=== PATIENT | male | born 1985 | race Caucasian/White ===

== ENCOUNTER 2023-03-29 08:04 | Emergency (ER) | payer OTHER, SELFPAY ==
[2023-03-29 08:12] VITALS: BP 134/77; PULSE 85; RESP 24; TEMP 36.6; O2SAT 99
--- NOTE | 2023-03-29 08:13 | ED.URI ---
HPI - URI/Sore Throat General Chief Complaint: Upper Respiratory Infection Stated Complaint: Sore Throat Time Seen by Provider: 03/29/23 08:13 Source: patient Mode of arrival: ambulatory Limitations: no limitations History of Present Illness HPI Narrative: 37-year-old male presents with complaint of sore throat for the past 6 days. Also reports some mild congestion and cough. Taking [id number] DayQuil NyQuil cold and flu with no relief of symptoms. States main symptom is basically the sore throat, worse with swallowing. Afebrile. Denies nausea vomiting diarrhea. Reports fatigue. All systems reviewed and negative except as noted above. Related Data Home Medications Medication Instructions Recorded Confirmed hydrochlorothiazide 25 mg tablet 25 mg PO DAILY 03/29/23 03/29/23 losartan 100 mg tablet 100 mg PO DAILY 03/29/23 03/29/23 metoprolol succinate 50 mg 50 mg PO DAILY 03/29/23 03/29/23 tablet,extended release 24 hr Allergies Allergy/AdvReac Type Severity Reaction Status Date / Time No Known Allergies Allergy Verified 03/29/23 08:26 Review of Systems Review of Systems: CONSTITUTIONAL: Denies fever, chills, or sweats. Reports fatigue. EYES: Denies visual changes, redness, or discharge. ENT: Reports rhinorrhea, congestion, sore throat. Denies otalgia. CARDIOVASCULAR: Denies chest pain, palpitations, or edema. RESPIRATORY: Reports cough. Denies dyspnea. GASTROINTESTINAL: Denies abdominal pain, nausea, vomiting, or diarrhea. GENITOURINARY: Denies dysuria or hematuria. SKIN: Denies rash or itching. MUSCULOSKELETAL: Denies back pain, joint pain, or myalgia. NEUROLOGIC: Denies headache, numbness, or weakness. PSYCHIATRIC: Denies anxiety or depression. All other systems reviewed are negative, except as documented in HPI. PMFSH Comments At time of signature, agree with nursing past medical, surgical, social and family history. There is no relevant family history pertinent to the presenting complaint. Exam Narrative: GENERAL: This is a well-nourished, well-developed patient, in no apparent distress. HEAD: normocephalic, atraumatic. EYES: PERRL. Sclera clear/white. Vision is grossly intact. EARS: External ears normal, auditory canals clear and without drainage, TMs normal without perforation. Hearing grossly intact. NOSE: External nose normal with no obvious nasal discharge, nares without redness, no rhinorrhea. THROAT: Mucous membranes moist, swelling to posterior pharynx with erythema. Tonsils erythematous, 2+ bilaterally. NECK: Neck supple, non-tender without lymphadenopathy, masses or thyromegaly. CARDIOVASCULAR: Regular rate and rhythm without murmurs, gallops, or rubs. RESPIRATORY: Clear to auscultation. Breath sounds equal bilaterally. No wheezes, rales, or rhonchi. SKIN: warm, Dry, intact with no suspicious lesions or rash, good texture and turgor. NEURO: awake, alert, and oriented to person, place and time. There were no obvious focal neurologic abnormalities. EXTREMITIES: No joint tenderness, effusion, or edema noted. Course Course Level of Care: Express Care Visit Vital Signs Vital signs: Vital Signs Temperature 36.6 C 03/29/23 08:12 Pulse Rate 85 03/29/23 08:12 Respiratory Rate 24 H 03/29/23 08:12 Blood Pressure 134/77 03/29/23 08:12 Pulse Oximetry 99 03/29/23 08:12 Oxygen Delivery Room Air 03/29/23 08:12 Temperature 36.6 C 03/29/23 08:12 Pulse Rate 85 03/29/23 08:12 Respiratory Rate 24 H 03/29/23 08:12 Blood Pressure 134/77 03/29/23 08:12 Pulse Oximetry 99 03/29/23 08:12 Oxygen Delivery Room Air 03/29/23 08:12 Reviewed MDM - URI/Sore Throat MDM Narrative Medical decision making narrative: Patient is aware of diagnosis, understands and agrees to treatment plan. Anticipatory guidance given. Patient agrees to follow-up as directed and is aware of reasons to seek care at the emergency department. Portions of this record february
== END 2023-03-29 08:40 | disposition home or self-care (01) ==
PROVIDERS: Emergency Provider Nurse Practitioner Family; PCP Internal Medicine
DX: J01.90 Acute sinusitis, unspecified (principal); I10 Essential (primary) hypertension
CPT/HCPCS: 87081; 87880; 99213; G0463

== ENCOUNTER 2025-01-07 16:42 | Emergency (ER) | payer OTHER, SELFPAY ==
--- OUTSIDE RECORDS SUMMARY | 2025-01-07 16:44 | XMS_ITS | Referral Summary ---
Author Organization [facility] [address] Address [address] [place] [address] Care Team Providers Care Traffic Circuit Engineer Name Role Phone Jamie Tello MD Primary Care Provider [phone] Encounters Date Type Department Care Team Description 10/26/2024 8:00 AM VETERINARY ATTENDANT Office Visit [facility] [address] [facility] [address] [facility] [place] [address] Jamie Tello MD Essential hypertension (Primary Dx); Dermatitis; Sleep apnea, unspecified type from Last 3 Months Allergies No known active allergies Medications losartan (COZAAR) 100 mg tablet Take 1 tablet by mouth once daily 90 tablet 3 10/01/2024 Active hydroCHLOROthiaz juany (HYDRODIURIL) 25 mg tablet Take 1 tablet by mouth once daily 90 tablet 3 10/01/2024 Active metoprolol XL (TOPROL-XL) 50 mg extended release tablet Take 1 tablet by mouth once daily 90 tablet 3 10/01/2024 Active Active Problems Problem Noted Date Diagnosed Date Coccyx pain 08/10/2024 Assessment & Plan (08/10/2024 1:44 PM CDT): Naproxen BID x 3d, then as needed Continue OTC APAP Heat PRN Will obtain imaging today Essential hypertension 10/03/2021 Immunizations Immunization Administration Dates Next Due Influenza, Quadrivalent, Gisselle l Culture-based MDCK, Preservative Free, Antibiotic Free, Intramuscular 07/05/2022,07/18/2020 Influenza, Quadrivalent, Rec ombinant, Egg Free, Preservative Free, Intramuscular 07/04/2021 Influenza, Quadrivalent, Spl it, Preservative Free, Intramuscular 07/17/2023 Influenza, Trivalent, Preservative Free, Intramu scular 08/06/2024 Daniel (J&J) SARS-CoV-2 Vaccination 12/24/2020 Tdap 02/15/2023 Social History Tobacco Use Types Packs/Day Years Used Date Smoking Tobacco: Former Cigarettes Q uit: 07/2003 Smokeless Tobacco: Never Tobacco Cessation:Counseling Given: Not Answered Sex and Gender Information Value Date Recorded Sex Assigned at Not on file Legal Sex Male 2:39 PM CDT Gender Identity Not on file Sexual Orientation Not on file Last Filed Vital Signs Vital Sign Reading Time Taken Comments Blood Pressure 141/93 10/26/2024 7:57 AM VETERINARY ATTENDANT Pulse 79 10/26/2024 7:57 AM VETERINARY ATTENDANT Temperature - - Respiratory Rate - - Oxygen Saturation 98% 08/19/2024 2:19 PM CDT Inhaled Oxygen Concentration - - Weight 131.5 kg (290 lb) 10/26/2024 7:57 AM VETERINARY ATTENDANT Height 177.8 cm (5' 10 ) 10/26/2024 7:57 AM VETERINARY ATTENDANT Body Mass Index 41.61 10/26/2024 7:57 AM VETERINARY ATTENDANT Plan of Treatment Not on file Insurance DANICA CIGNA CIGNA CIGNA CIGNA Care Teams Traffic Circuit Engineer Relationship Specialty Start Date End Date Jamie Tello MD [address] [address] PCP - General Internal Medicine 06/16/20
--- OUTSIDE RECORDS SUMMARY | 2025-01-07 16:44 | XMS_ITS | Clinical Summary ---
Author Organization [facility] [address] Address [address] [place] [address] Care Team Providers Care Mainspring Winder Name Role Phone Jamie Tello MD Primary Care Provider [phone] Allergies No known active allergies Medications losartan [...] Will obtain imaging today Essential hypertension 10/03/2021 Encounters Date Type Department Care Team Description 10/26/2024 8:00 AM PROJECTION TECHNICIAN Office Visit [facility] [address] [facility] [address] [place] [address] Jamie Tello MD Essential hypertension (Primary Dx); Dermatitis; Sleep apnea, unspecified type from Last 3 Months Immunizations Immunization Administration Dates Next Due Influenza, Quadrivalent, Gisselle l Culture-based MDCK, Preservative Free, Antibiotic Free, Intramuscular 07/05/2022,07/18/2020 Influenza, Quadrivalent, Rec ombinant, Egg Free, Preservative Free, Intramuscular 07/04/2021 Influenza, Quadrivalent, Spl it, Preservative Free, Intramuscular 07/17/2023 Influenza, Trivalent, Preservative Free, Intramu scular 08/06/2024 Daniel (J&J) SARS-CoV-2 Vaccination 12/24/2020 Tdap 02/15/2023 Medical History Medical History Date Comments Hypertension Family History Medical History Relation Name Comments Diabetes Mother Relation Name Status Comments Mother Social History Tobacco Use Types Packs/Day Years Used Date Smoking Tobacco: Former Cigarettes Q uit: 07/2003 Smokeless Tobacco: Never Tobacco Cessation:Counseling Given: Not Answered Sex and Gender Information Value Date Recorded Sex Assigned at Not on file Legal Sex Male 2:39 PM CDT Gender Identity Not on file Sexual Orientation Not on file Obstetrics History Last Filed Vital Signs Vital Sign Reading Time Taken Comments Blood Pressure 141/93 10/26/2024 7:57 AM PROJECTION TECHNICIAN Pulse 79 10/26/2024 7:57 AM PROJECTION TECHNICIAN Temperature - - Respiratory Rate - - Oxygen Saturation 98% 08/19/2024 2:19 PM CDT Inhaled Oxygen Concentration - - Weight 131.5 kg (290 lb) 10/26/2024 7:57 AM PROJECTION TECHNICIAN Height 177.8 cm (5' 10 ) 10/26/2024 7:57 AM PROJECTION TECHNICIAN Body Mass Index 41.61 10/26/2024 7:57 AM PROJECTION TECHNICIAN Plan of Treatment Health Maintenance Due Date Last Done Comments Depression Screening 1983 Hepatitis C Screening 1983 Varicella Vaccines (1 of 2 - 13+ 2-dose series) 1996 Hepatitis B Screening 2001 Regular Well Visit/Exam 18-64 10/03/2022 10/03/2021 DTaP/Tdap/Td Vaccine (2 - Td or Tdap) 02/15/2033 02/15/2023 Covid-19 Vaccine Completed 08/06/2024, , 07/05/2022, Additional history exists Influenza Vaccine Completed 08/06/2024, , 07/05/2022, Additional history exists HPV Vaccines Aged Out No longer eligi ble based on patient's age to complete this topic Pneumococcal vaccine <65 Aged Out No longer eligible based on patient's age to complete this topic Insurance CIGNA CIGNA CIGNA CIGNA CIGNA Care Teams Mainspring Winder Relationship Specialty Start Date End Date Jamie Tello MD [id number] [place] [address] PCP - General Internal Medicine 06/16/20
[2025-01-07 16:48] VITALS: BP 143/84; PULSE 73; RESP 16; TEMP 36.4; O2SAT 97
--- NOTE | 2025-01-07 16:54 | ED.EYEPROB ---
HPI - Eye Problem General Chief complaint: Eye Problems Stated complaint: Left Eye Problem Time Seen by Provider: 01/07/25 16:54 Source: patient Mode of arrival: ambulatory Limitations: no limitations History of Present Illness HPI Narrative: 39 yo M presents wtih stye to L lower eyelid for 1 wk. Apply warm compress with no relief. all systems reviewed and negative except as noted above. Related Data Home Medications ?Medication ?Instructions ?Recorded ?Confirmed ?Last Taken ?Type hydrochlorothiazide 25 mg tablet 25 mg PO DAILY 03/29/23 03/29/23 Unknown History losartan 100 mg tablet 100 mg PO DAILY 03/29/23 03/29/23 Unknown History metoprolol succinate 50 mg 50 mg PO DAILY 03/29/23 03/29/23 Unknown History tablet,extended release 24 hr Allergies Allergy/AdvReac Type Severity Reaction Status Date / Time No Known Allergies Allergy Verified 03/29/23 08:26 Review of Systems Review of Systems: CONSTITUTIONAL: Denies fever, chills, or sweats. EYES: Denies visual changes, redness, or discharge. reports Panamanian to left lower eyelid ENT: Denies rhinorrhea, congestion, sore throat, or otalgia. CARDIOVASCULAR: Denies chest pain, palpitations, or edema. RESPIRATORY: Denies cough or dyspnea. GASTROINTESTINAL: Denies abdominal pain, nausea, vomiting, or diarrhea. GENITOURINARY: Denies dysuria or hematuria. SKIN: Denies rash or itching. MUSCULOSKELETAL: Denies back pain, joint pain, or myalgia. NEUROLOGIC: Denies headache, numbness, or weakness. PSYCHIATRIC: Denies anxiety or depression. All other systems reviewed are negative, except as documented in HPI. PMFSH Comments reviewed Exam Narrative: GENERAL: This is a well-nourished, well-developed patient, in no apparent distress. HEAD: normocephalic, atraumatic. EYES: PERRL. Sclera clear/white bilaterally. Vision is grossly intact. erythematous pustule to left lower eyelid with tenderness on palpation EARS: External ears normal NOSE: External nose normal NECK: Neck supple, non-tender without lymphadenopathy, masses or thyromegaly. CARDIOVASCULAR: Regular rate and rhythm without murmurs, gallops, or rubs. RESPIRATORY: Clear to auscultation. Breath sounds equal bilaterally. No wheezes, rales, or rhonchi. SKIN: warm, Dry, intact with no suspicious lesions or rash, good texture and turgor. NEURO: awake, alert, and oriented to person, place and time. There were no obvious focal neurologic abnormalities. EXTREMITIES: No joint tenderness, effusion, or edema noted. Course Course Level of Care: Express Care Visit Vital Signs Vital signs: Vital Signs Temperature 36.4 C 01/07/25 16:48 Pulse Rate 73 01/07/25 16:48 Respiratory Rate 16 01/07/25 16:48 Blood Pressure 143/84 H 01/07/25 16:48 Pulse Oximetry 97 01/07/25 16:48 Oxygen Delivery Room Air 01/07/25 16:48 Temperature 36.4 C 01/07/25 16:48 Pulse Rate 73 01/07/25 16:48 Respiratory Rate 16 01/07/25 16:48 Blood Pressure 143/84 H 01/07/25 16:48 Pulse Oximetry 97 01/07/25 16:48 Oxygen Delivery Room Air 01/07/25 16:48 reviewed MDM - Eye Problem MDM Narrative Medical decision making narrative: Please be advised this is a medical document. It is intended for [id number] communication. It is written in medical language and may contain unfamiliar abbreviations or verbiage. Medical documents are intended to carry relevant information, facts as evident, and the clinical opinion of the practitioner at the time of the encounter. This report may have been done utilizing a voice recognition system. Attempts have been made to correct errors. However, there may be uncorrected grammatical, spelling, and recognition errors present. The file time of this note does not necessarily represent the time of service. Discharge Plan Discharge Clinical Impression: Hordeolum externum left lower eyelid Patient Disposition: Home, Self-Care Condition: Stable Instructions: Antibiotic Form, Erythromycin (Into the eye), Stye (ED) Additional Instructions: Place antibiotic ointment as prescribed. Read over discharge packet on how to place ointment. See your doctor if not improving. Patient Language: Portuguese Prescriptions: New erythromycin 5 mg/gram (0.5 %) ointment 1 applic LEFT EYE QID 10 Days Qty: 3.5 0RF No Action metoprolol succinate 50 mg tablet extended release 24 hr 50 mg PO DAILY hydrochlorothiazide 25 mg tablet 25 mg PO DAILY losartan 100 mg tablet 100 mg PO DAILY Follow-up/Referrals: Konzen,Jamie Xiao MD [Primary Care Provider] - Time of Disposition: 17:02
== END 2025-01-07 17:08 | disposition home or self-care (01) ==
PROVIDERS: Emergency Provider Nurse Practitioner Family; PCP Internal Medicine
DX: H00.015 Hordeolum externum left lower eyelid (principal)
CPT/HCPCS: 99213; G0463